=== PATIENT | male | born 1970 | race Caucasian/White ===

== ENCOUNTER 2021-05-31 17:01 | Emergency (ER) | payer OTHER, SELFPAY ==
--- NOTE | 2021-05-31 16:53 | ECG_ITS ---
APPROVED REPORT Exam: Resting ECG HR:64 bpm ECG Measurements Heart Rate 64 AXES AK 122 P 29 QRSd 90 QRS 40 QT 376 T 37 QTc 387 Conclusion Normal sinus rhythm Minimal voltage criteria for LVH, may be normal variant Borderline ECG Electronically signed by : Diego Ruiz MD 06/01/2021 16:45:20
[2021-05-31 17:03] VITALS: BP 177/99; PULSE 67; RESP 18; TEMP 36.9; O2SAT 98; BMI 27.2
--- NOTE | 2021-05-31 17:12 | XR_ITS ---
PROCEDURE INFORMATION: Exam: XR Chest Exam date and time: 05/31/2021 5:12 PM Age: 51 years old Clinical indication: Other: Dizziness, almost fell today. ; Prior surgery; Surgery date: 6+ months; Surgery type: Open heart in 2009; Additional info: Chest pain TECHNIQUE: Imaging protocol: XR of the chest. Views: 1 view. COMPARISON: No relevant prior studies available. FINDINGS: Tubes, catheters and devices: Multiple sternal cerclage wires overlie the sternum. Lungs: Unremarkable. No consolidation. Pleural spaces: Unremarkable. No pleural effusion. No pneumothorax. Heart/Mediastinum: Unremarkable. No cardiomegaly. Bones/joints: Unremarkable. IMPRESSION: No acute findings.
[2021-05-31 17:29] LABS: Basophils # 0.1 K/mm3 (0-0.2); Basophils % 0.6 % (0.1-2.0); Eosinophils # 0.1 K/mm3 (0.0-0.4); Eosinophils % 1.7 % (0.1-12.0); Hematocrit 47.7 % (42.0-52.0); Hemoglobin 15.5 g/dL (14.1-18.0); Lymphocytes # 2.1 K/mm3 (0.7-4.5); Lymphocytes % 26.1 % (10-50); Mean Corpuscular HGB Conc 32.4 g/dL (31.8-35.4); Mean Corpuscular Hemoglobin 30.1 pg (27.0-31.2); Mean Platelet Volume 8.7 fl (7.4-10.4); Monocytes # 0.8 K/mm3 (0.1-1.0); Monocytes % 9.9 % (1.7-9.3); Neutrophils % 61.6 % (37.0-80.0); Platelet Count 287 K/mm3 (142-424); Red Blood Count 5.13 M/mm3 (4.60-6.20); Red Cell Distribution Width 12.9 % (11.5-17.5); White Blood Count 8.1 K/mm3 (4.8-10.8)
[2021-05-31 17:34] VITALS: BP 139/85; PULSE 66; RESP 20; O2SAT 96
[2021-05-31 17:36] LABS: Alanine Aminotransferase 30 U/L (12-78); Albumin Level 4.7 g/dl (3.5-5.0); Albumin/Globulin Ratio 1.3 (1.1-1.8); Alkaline Phosphatase 81 U/L (38-126); Anion Gap 11.1 mEq/L (5-15); Aspartate Amino Transferase 34 U/L (17-59); Bilirubin,Total 0.6 mg/dl (0.2-1.3); Blood Urea Nitrogen 18 mg/dl (9-20); Blood Urea Nitrogen 19 mg/dl (9-20); Calcium 9.7 mg/dl (8.4-10.2); Calcium 9.8 mg/dl (8.4-10.2); Carbon Dioxide 29 mmol/L (22.0-30.0); Chloride 103 mmol/L (98-107); Chloride 104 mmol/L (98-107); Creatinine Clearance Estimated 130 mL/min (50-200); Estimated Glomerular Filt Rate 101 ml/min (>60); GFR (African American) 122 ML/MIN (>60); Globulin 3.5 g/dL (1.3-3.2); Glucose 92 mg/dl (74-100); Potassium 4.1 mmoL/L (3.5-5.1); Sodium 140 mmol/L (136-145); Sodium 143 mmol/L (136-145); Total Protein,Serum 8.2 g/dl (6.3-8.2)
[2021-05-31 17:49] LABS: Troponin I < 0.01 ng/ml (0.00-0.034)
--- NOTE | 2021-05-31 18:47 | [facility].EDCP ---
ED Disposition Clinical Impression: Nonspecific chest pain Hypertension Qualifiers: Hypertension type: primary hypertension Qualified Code(s): I10 - Essential (primary) hypertension Disposition: Home, Self-Care Condition on Discharge: Good Instructions: DI for Atypical Chest Pain Referrals: Provider,MD Karyn [Primary Care Provider] - Lexa Osborne MD [Staff Physician] - - Critical Care Critical Care Time: No Attestation: On 05/31/21, the high probability of a clinically significant, sudden or life threatening deterioration of the following system(s) required my full and direct attention, intervention and personal management. The time I documented below is in addition to time spent performing reported procedures but includes the following listed in this critical care notation. Medical Decision Making - Medical Records Medical records reviewed: Yes: I reviewed the patient's medical records. - Man Inquiry Pt receiving controlled substance: No Vital Signs: 05/31/21 17:03 05/31/21 17:34 Temperature 98.4 F Temperature Source Oral Pulse Rate 66 Pulse Rate [Left] 67 Respiratory Rate 18 20 Blood Pressure 139/85 Blood Pressure [Right Arm] 177/99 H Blood Pressure Mean [Right Arm] 125 Blood Pressure Position Sitting 02 Sat by Pulse Oximetry 98 96 Oxygen Delivery Method Room Air - Lab Data Lab Results 05/31/21 16:55: WBC 8.1, RBC 5.13, Hgb 15.5, Hct 47.7, MCV 93.0, MCH 30.1, MCHC 32.4, RDW 12.9, Plt Count 287, MPV 8.7, Neut % (Auto) 61.6, Lymph % (Auto) 26.1, [place] % (Auto) 9.9 H, Eos % (Auto) 1.7, Baso % (Auto) 0.6, Neut # (Auto) 5.0, Lymph # (Auto) 2.1, [place] # (Auto) 0.8, Eos # (Auto) 0.1, Baso # (Auto) 0.1 05/31/21 16:55: Sodium 140, Potassium 4.1, Chloride 104, Carbon Dioxide 29, Anion Gap 11.1, BUN 19, Creatinine 0.80, Estimated Creat Clear 130, Estimated GFR 101, Est GFR ( Amer) 122, Glucose 92, Calcium 9.8, Total Bilirubin 0.6, AST 34, ALT 30, Alkaline Phosphatase 81, Troponin I < 0.01, Total Protein 8.2, Albumin 4.7, Globulin 3.5 H, Albumin/Globulin Ratio 1.3 05/31/21 16:55: Sodium 143, Potassium 4.0, Chloride 103, Carbon Dioxide 29, Anion Gap 15.0, BUN 18, Creatinine 0.80, Estimated Creat Clear 130, Estimated GFR 101, Est GFR ( Amer) 122, Glucose 92, Calcium 9.7 Result diagrams: 05/31/21 16:55 05/31/21 16:55 Orders (Tests/Meds): ED MEDICATIONS Generic Name Dose Route Start Last Admin Trade Name Freq PRN Reason Stop Dose Admin Nitroglycerin 0.4 mg 05/31/21 17:10 05/31/21 17:14 Nitroglycerin 0.4mg Sl Tablet SL 06/30/21 17:09 0.4 mg [id number] PRN Administration Chest Pain Discontinued Medications Generic Name Dose Route Start Last Admin Trade Name Freq PRN Reason Stop Dose Admin Aspirin 324 mg 05/31/21 17:10 05/31/21 17:14 Aspirin 81mg Chewable Tablet PO 05/31/21 17:11 324 mg ONCE ONE Administration ORDERS Category Date Time Status Troponin I Q3H Lab 05/31/21 20:15 Ordered Troponin I Q3H Lab 05/31/21 23:15 Ordered - ECG Data Tracing #1 I reviewed this ECG and interpreted as documented below: ECG initial impression date: 05/31/21 ECG initial impression time: 16:53 ECG normal with no acute: arrhythmias, ischemia, conduction abnormalities, chamber hypertrophy Normal Sinus Rhythm: Yes - Reevaluation(s) Time: 18:52 Reevaluation #1: On reevaluation, patient is pain-free. Blood pressure significantly improved. Negative troponin. No significant EKG changes. Patient is to follow-up with PCP in 48 hours or return the emergency department for evaluation. Given strict return precautions. Verbalized understanding. - MARISSA Score for Non-Stemi Age of Patient: 50-59 years old Heart Rate: 50-69 bpm Systolic Blood Pressure: 120-139 mmhg Serum Creatinine: <0.40 mg/dl CHF [place] Class: I-No CHF Other Risk Factors: None Non-Stemi Risk Score: 79 Risk Stratification: 1-108 = Low Risk Medical Decision Narrativ
[2021-05-31 19:28] VITALS: BP 123/83; PULSE 78; RESP 16; TEMP 36.6; O2SAT 98
== END 2021-05-31 19:30 | disposition home or self-care (01) ==
PROVIDERS: Emergency Provider Emergency Medicine
DX: R07.89 Other chest pain (principal); I10 Essential (primary) hypertension
CPT/HCPCS: 71045; 80048; 80053; 84484; 85025; 93005; 99283